=== PATIENT | female | born 1975 | race Caucasian/White ===

== ENCOUNTER 2017-07-09 11:35 | Emergency (ER) | payer BC ==
[2017-07-09 11:58] VITALS: RESP 18
--- NOTE | 2017-07-09 12:31 | ED PDOC ---
HPI: Headache Time Seen by Provider: 07/09/17 12:11 Chief Complaint (Nursing): Headache Chief Complaint (Provider): Headache History Per: Patient History/Exam Limitations: no limitations Onset/Duration Of Symptoms: Days (x 5) Current Symptoms Are (Timing): Still Present Severity: Mild Pain Scale Rating Of: 5 Quality: Aching Preceeding Symptoms: None Associated Symptoms: denies: Photophobia, Blurred Vision, Nausea, Vomiting, Extremity Weakness Additional Complaint(s): Rebeca is a 42 y/o female with a history of hypertension who presents to the ED c/o global, dull "aching" headache and sore throat for the past week. Patient states she went to an urgent care last for the sore throat where she was negative for strep. They gave her penicillin which she started on Sunday and continues to take. Today, she is also complaining of associated left sided ear pain, headache, and swollen lymph nodes in her neck. She has not taken any medications for the pain and denies fever, congestion, cough, abdominal pain, chest pain, nausea, vomiting, diarrhea, rash, blurred vision, photophobia, or dysuria. (-) recent travel, (-) sick contacts. PMD: Clinic Past Medical History Reviewed: Historical Data, Nursing Documentation, Vital Signs Vital Signs: Last Vital Signs Temp 98.0 F 07/09/17 11:55 Pulse 96 H 07/09/17 11:55 Resp 18 07/09/17 11:55 BP 159/95 H 07/09/17 11:55 Pulse Ox 95 07/09/17 11:55 - Medical History PMH: HTN - Surgical History Surgical History: No Surg Hx - Family History Family History: States: Unknown Family Hx - Social History Current smoker - smoking cessation education provided: No Alcohol: None Drugs: Denies - Home Medications Home Medications: Ambulatory Orders Medication Instructions Recorded Famotidine [Pepcid] 20 mg PO DAILY PRN #30 tab 02/14/16 - Allergies Allergies/Adverse Reactions: Allergies Allergy/AdvReac Type Severity Reaction Status Date / Time No Known Allergies Allergy Verified 02/14/16 14:06 Review of Systems ROS Statement: Except As Marked, All Systems Reviewed And Found Negative Constitutional: Negative for: Fever ENT: Positive for: Ear Pain (left), Throat Pain. Negative for: Nose Congestion Cardiovascular: Negative for: Chest Pain Respiratory: Negative for: Cough Gastrointestinal: Negative for: Nausea, Vomiting, Abdominal Pain Genitourinary Female: Negative for: Dysuria Musculoskeletal: Negative for: Neck Pain Skin: Negative for: Rash Neurological: Positive for: Headache Physical Exam - Reviewed Nursing Documentation Reviewed: Yes Vital Signs Reviewed: Yes - Physical Exam Appears: Positive for: Well, Non-toxic, No Acute Distress Head Exam: Positive for: ATRAUMATIC, NORMOCEPHALIC Skin: Positive for: Normal Color, Warm, Dry Eye Exam: Positive for: Normal appearance, EOMI, PERRL. Negative for: Nystagmus , Conjunctival injection ENT: Positive for: Pharynx Is (clear, uvula midline), TM Is/Are (nonbulging, nonerythematous bilaterally), Pharyngeal Erythema (mild). Negative for: Nasal Congestion, Tonsillar Exudate, Tonsillar Swelling, Other (hypertrophy) Neck: Positive for: Painless ROM, Supple ((-) lymphadenopathy) Cardiovascular/Chest: Positive for: Regular Rate, Rhythm. Negative for: Murmur Respiratory: Positive for: Normal Breath Sounds. Negative for: Decreased Breath Sounds, Accessory Muscle Use, Respiratory Distress Gastrointestinal/Abdominal: Positive for: Normal Exam, Soft. Negative for: Tenderness, Mass, Distended, Guarding, Rebound Back: Negative for: L CVA Tenderness, R CVA Tenderness Extremity: Positive for: Normal ROM. Negative for: Deformity Lymphatic: Negative for: Adenopathy Neurologic/Psych: Positive for: Alert, transportation planning technician II-XII (grossly intact), Oriented, Cerebellar Tests (intact), Gait (steady in ED). Negative for: Motor/Sensory Deficits - ECG O2 Sat by Pulse Oximetry: 95 (RA) Pulse Ox Interpretation: Normal Medical Decision Making Medical Decision Making: Time: 12:13 Clinical Impression: Headache, Pharyngitis Plan: --Reglan --Toradol --Tylenol 1315 Repeat vitals: BP 129/82, HR 75, O2 98% room air, temp 98.1 oral. On re-evaluation, patient reports improvement of symptoms and resolution of headache. On exam, patient remains AAOx3, in no acute distress. On exam, neck is supple, lungs CTA, cardiac RRR, abdomen is soft and non-tender, neuro exam shows no focal findings. Stable for discharge. Advised to follow up with primary care physician in 1-2 days without fail. Return to the emergency room at any time for any new or worsening symptoms. Advised to continue medications from urgent care visit and to take Ibuprofen as needed for pain/headache. Patient states she fully agrees with and understands discharge instructions. States that she agrees with the plan and disposition. Verbalized and repeated discharge instructions and plan. I have given the patient opportunity to ask any additional questions. Scribe Attestation: Documented by Terry Friedman, acting as a scribe for Angela Glover PA-C Provider Scribe Attestation: All medical record entries made by the Scribe were at my direction and personally dictated by me. I have reviewed the chart and agree that the record accurately reflects my personal performance of the history, physical exam, medical decision making, and the department course for this patient. I have also personally directed, reviewed, and agree with the discharge instructions and disposition. Disposition - Clinical Impression Clinical Impression: Headache, Pharyngitis - Patient ED Disposition Is Patient to be Admitted: No Counseled Patient/Family Regarding: Studies Performed, Diagnosis, Need For Followup, Rx Given - Disposition Referrals: [facility] [Provider Group] Disposition: Routine/Home Disposition Time: 13:18 Condition: STABLE Instructions: Viral Pharyngitis, Headache, Adult, Sore Throat, Adult (DC) Forms: [employer] (Filipino) Print Language: PASHTO - POA Present On Arrival: None
[2017-07-09 13:25] VITALS: BP 129/82; PULSE 75; TEMP 98.1
[2017-07-09 15:01] VITALS: O2SAT 95
== END 2017-07-09 13:56 | disposition home or self-care (01) ==
LOC: H.ER 11:35
DX: R51 Headache (principal); J02.9 Acute pharyngitis, unspecified; I10 Essential (primary) hypertension
CPT/HCPCS: 96372; 99284; J1885

== ENCOUNTER 2018-08-29 17:21 | Emergency (ER) | payer BC ==
[2018-08-29 18:08] VITALS: O2SAT 98
[2018-08-29 18:36] VITALS: PULSE 78
--- NOTE | 2018-08-29 18:36 | ED PDOC ---
HPI: General Adult Time Seen by Provider: 08/29/18 17:25 Chief Complaint (Nursing): Shortness Of Breath Chief Complaint (Provider): Shortness Of Breath History Per: Patient History/Exam Limitations: no limitations Onset/Duration Of Symptoms: Intermittent Episodes Current Symptoms Are (Timing): Better Additional Complaint(s): 43 year old female with HTN for which she takes Benicar presents to the ED complaining of shortness of breath and intermittent palpations. Patient states she had palpitations today that lasted for a few seconds and then resolved. Denies shortness of breath on exertion, chest pain, history of thyroid, history of caffeine intake or orthopnea. PMD: Non [facility] provider Past Medical History Reviewed: Historical Data, Nursing Documentation, Vital Signs Vital Signs: Last Vital Signs Temp 98.3 F 08/29/18 17:33 Pulse 79 08/29/18 18:07 Resp 19 08/29/18 18:07 BP 150/98 H 08/29/18 18:07 Pulse Ox 98 08/29/18 18:07 Primary Care Provider: DoctorJess[facility] - Medical History PMH: HTN - Surgical History Surgical History: No Surg Hx - Family History Family History: States: Unknown Family Hx - Social History Current smoker - smoking cessation education provided: No Alcohol: None Drugs: Denies - Immunization History Hx Tetanus Toxoid Vaccination: No Hx Influenza Vaccination: No Hx Pneumococcal Vaccination: No - Home Medications Home Medications: Ambulatory Orders Medication Instructions Recorded Famotidine [Pepcid] 20 mg PO DAILY PRN #30 tab 02/14/16 - Allergies Allergies/Adverse Reactions: Allergies Allergy/AdvReac Type Severity Reaction Status Date / Time No Known Allergies Allergy Verified 08/29/18 17:33 Review of Systems ROS Statement: Except As Marked, All Systems Reviewed And Found Negative Cardiovascular: Negative for: Chest Pain, Palpitations Respiratory: Positive for: Shortness of Breath. Negative for: SOB with Exertion Physical Exam - Reviewed Nursing Documentation Reviewed: Yes Vital Signs Reviewed: Yes - Physical Exam Appears: Positive for: Well, Non-toxic, No Acute Distress Head Exam: Positive for: ATRAUMATIC, NORMAL INSPECTION, NORMOCEPHALIC Skin: Positive for: Normal Color, Warm, Dry. Negative for: Rash Eye Exam: Positive for: EOMI, Normal appearance, PERRL ENT: Positive for: Normal ENT Inspection Neck: Positive for: Normal, Painless ROM, Supple. Negative for: Decreased ROM Cardiovascular/Chest: Positive for: Regular Rate, Rhythm. Negative for: Murmur Respiratory: Positive for: Normal Breath Sounds. Negative for: Respiratory Distress Gastrointestinal/Abdominal: Positive for: Normal Exam, Soft. Negative for: Tenderness Back: Positive for: Normal Inspection Extremity: Positive for: Normal ROM. Negative for: Tenderness, Pedal Edema, Deformity Neurological/Psych: Positive for: Awake, Alert, Normal Tone, Oriented (x3). Negative for: Motor/Sensory Deficits - ECG ECG Rhythm: Positive for: Sinus Rhythm Rate: 78 O2 Sat by Pulse Oximetry: 98 (RA) Pulse Ox Interpretation: Normal Medical Decision Making Medical Decision Making: Time: 1830 Impression: palpitations r/o hypothyroid, cardiac etiology, pneumonia Plan: EKG CMP T4 stat Troponin Thyroid stimulating hormone CBC w/ differential Re-evaluation EKG: normal sinus rhythm at 78bpm 1900 Patient care endorsed to Dr. Rivera pending labs and re-evaluation Scribe Attestation: Documented by Ralph Us, acting as a scribe for Sandip Echols MD Provider Scribe Attestation: All medical record entries made by the Scribe were at my direction and person ally dictated by me. I have reviewed the chart and agree that the record accurately reflects my personal performance of the history, physical exam, medical decision making, and the department course for this patient. I have also personally directed, reviewed, and agree with the discharge instructions and disposition. Disposition - Clinical Impression Clinical Impression: Palpitations - Patient ED Disposition Is Patient to be Admitted: Transfer of Care - Disposition Disposition: Transfer of Care Disposition Time: 19:00 (pending labs and reevaluation) Condition: STABLE Forms: [employer] (Mohawk) Patient Signed Over To: Yung Rivera
[2018-08-29 18:52] LABS: BASO # 0.1 K/uL (0.0-0.2); EOS # 0.2 K/uL (0.0-0.7); EOS % 3.6 % (0.0-4.0); HEMOGLOBIN 14.9 g/dL (12.0-16.0); LYMPH # 3.2 K/uL (1.0-4.3); LYMPH % 57.5 % (20.0-40.0); MEAN CELL VOLUME 82.5 fl (81.0-99.0); MEAN CORPUSCULAR HEMOGLOBIN 28.4 pg (27.0-31.0); MEAN CORPUSCULAR HGB CONC 34.4 g/dL (33.0-37.0); MEAN PLATELET VOLUME 9.1 fl (7.2-11.7); MONO # 0.5 K/uL (0.0-0.8); MONO % 8.2 % (0.0-10.0); NEUT # 1.6 K/uL (1.8-7.0); NEUT % 29.7 % (50.0-75.0); NRBC % 0.3 % (0.0-0.0); RBC 5.25 Mil/uL (3.80-5.20); RED CELL DISTRIBUTION WIDTH 13.5 % (11.5-14.5); WHITE BLOOD COUNT 5.5 K/uL (4.8-10.8)
[2018-08-29 19:02] LABS: BLOOD UREA NITROGEN 11 mg/dl (7-17); CALCIUM 9.2 mg/dL (8.4-10.2); GFR NON-AFRICAN AMERICAN > 60
[2018-08-29 19:07] LABS: ALB/GLOB RATIO 1.2 (1.0-2.1); ALBUMIN 4.5 g/dL (3.5-5.0); ALT/SGPT 17 U/L (9-52); AST/SGOT 30 U/L (14-36)
--- NOTE | 2018-08-29 19:25 | ED PDOC ---
- Laboratory Results Result Diagrams: 08/29/18 18:40 08/29/18 18:40 Lab Results: Troponin I 0.0140 ng/mL (0.00-0.120) 08/29/18 18:40 Total Bilirubin 0.7 mg/dl (0.2-1.3) 08/29/18 18:40 AST 30 U/L (14-36) 08/29/18 18:40 ALT 17 U/L (9-52) 08/29/18 18:40 Alkaline Phosphatase 65 U/L (38-126) 08/29/18 18:40 Total Protein 8.3 G/DL (6.3-8.2) H 08/29/18 18:40 Albumin 4.5 g/dL (3.5-5.0) 08/29/18 18:40 Globulin 3.8 gm/dL (2.2-3.9) 08/29/18 18:40 Albumin/Globulin Ratio 1.2 (1.0-2.1) 08/29/18 18:40 - ECG O2 Sat by Pulse Oximetry: 98 (RA) Pulse Ox Interpretation: Normal Medical Decision Making Medical Decision Makin Patient care endorsed from Dr. Echols pending labs and re-evaluation. Patient resting comfortably in room. 2115 Labs reviewed and revealed no clinically significant abnormalities. CXR presents no active disease. Patient reports persistent fluttering sensation in chest radiating to ear. 23:27 CTA Chest with Intravenous Contrast for Pulmonary Embolism FINDINGS: PULMONARY ARTERIES No evidence of central or segmental pulmonary embolism is seen. AORTA There is no evidence for aneurysm or dissection of the thoracic aorta. LUNGS The lungs appear clear. PLEURAL SPACES No pneumothorax evident. No pleural effusions. HEART Heart size is within normal limits. No pericardial effusion. LYMPH NODES No lymphadenopathy is evident. BONES No focal osseous abnormality or acute fracture. UPPER ABDOMEN Images of the upper abdomen are unremarkable. IMPRESSION: Unremarkable pulmonary embolism protocol CTA of the chest. 23:54 Patient reports improvement of symptoms and is stable for discharge. Diagnosis is palpitations. --- Scribe Attestation: Documented by Ralph Us, acting as a scribe for Yung Rivera MD Provider Scribe Attestation: All medical record entries made by the Scribe were at my direction and personally dictated by me. I have reviewed the chart and agree that the record accurately reflects my personal performance of the history, physical exam, medical decision making, and the department course for this patient. I have also personally directed, reviewed, and agree with the discharge instructions and disposition. Disposition - Clinical Impression Clinical Impression: Palpitations - POA Present On Arrival: None - Disposition Referrals: Sudhir Ventura MD [Staff Provider] - Disposition: Routine/Home Disposition Time: 23:54 Condition: STABLE Instructions: Palpitations Forms: [employer] (Pashto)
[2018-08-29] MEDS ORDERED: Sodium Chloride 0.9% 50 ML IV ONE (21:25)
[2018-08-29] MEDS ORDERED: Iodixanol 320 MG/ML 100 ML BOTTLE IV ONE (21:25)
[2018-08-30 00:04] VITALS: BP 136/99; RESP 16; TEMP 98.4
--- NOTE | 2018-08-30 08:26 | RAD ---
Date of service: 08/29/2018 HISTORY: palpitations COMPARISON: Portable chest 02/14/2016. TECHNIQUE: Chest PA and lateral views FINDINGS: LUNGS: No active pulmonary disease. Improved inspiratory volume. PLEURA: No significant pleural effusion identified. No pneumothorax apparent. CARDIOVASCULAR: No aortic atherosclerotic calcification present. Normal cardiac size. No pulmonary vascular congestion. OSSEOUS STRUCTURES: No significant abnormalities. VISUALIZED UPPER ABDOMEN: Normal. OTHER FINDINGS: None. IMPRESSION: No interval acute cardiopulmonary disease appreciated. Improved inspiratory volume.
--- NOTE | 2018-08-30 09:31 | CARD ---
APPROVED REPORT Date of service: 08/29/2018 EKG Measurement Heart [id number] <Conclusion> Normal sinus rhythm Normal ECG
--- NOTE | 2018-08-30 10:32 | CT ---
Date of service: 08/29/2018 PROCEDURE: CT Chest with contrast (Pulmonary Angiogram) HISTORY: chest pain r/o PE COMPARISON: 08/29/2018. TECHNIQUE: Axial computed tomography images were obtained of the chest in the pulmonary arterial phase of enhancement. Coronal and sagittal reformatted images were created and reviewed. Intravenous contrast dose: 90 cc Visipaque 320. Mean Hounsfield value in the main pulmonary artery: 284.627 Radiation dose: Total exam DLP = 319.09 mGy-cm. This CT exam was performed using one or more of the following dose reduction techniques: Automated exposure control, adjustment of the mA and/or kV according to patient size, and/or use of iterative reconstruction technique. FINDINGS: PULMONARY ARTERIES: Unremarkable. No pulmonary embolism. AORTA: No acute findings. No thoracic aortic aneurysm. No atherosclerotic calcification or mural plaque present. LUNGS: Unremarkable. No nodule, mass or pulmonary consolidation. PLEURAL SPACES: Unremarkable. No effusion or pneumothorax. HEART: Unremarkable. No cardiomegaly. No significant pericardial effusion. LYMPH NODES: No lymphadenopathy. BONES, CHEST WALL: Unremarkable. No fracture or destructive lesion OTHER FINDINGS: Unremarkable. IMPRESSION: Unremarkable CT pulmonary angiogram. No pulmonary embolus. Concordant results (preliminary interpretation) provided by [employer] RAD. Procedure Completed: 22:29. Preliminary Report: Interpreted and electronically signed: 23:27. Final Interpretation: 10:20. August 30, 2018.
== END 2018-08-30 | disposition home or self-care (01) ==
LOC: H.ER 17:21
DX: R00.2 Palpitations (principal); I10 Essential (primary) hypertension
CPT/HCPCS: 71046; 71275; 80053; 81025; 84436; 84443; 84484; 85025; 93005; 99285; Q9967